=== PATIENT | male | born 1960 | race Caucasian/White ===

== ENCOUNTER 2017-03-10 23:50 | Emergency (ER) | payer MEDICAID ==
[2017-03-11] MEDS ORDERED: Sodium Chloride 0.9% 5 ML Syringe FLUSH PRN (00:10)
[2017-03-11] MEDS ORDERED: Sodium Chloride 0.9% 1,000 ML IV ONE (00:10)
[2017-03-11] MEDS ORDERED: Lidocaine 1% 20 ML MDV ONE (00:16)
--- NOTE | 2017-03-11 00:16 | EDM.PDOC ---
ED HPI GENERAL MEDICAL PROBLEM - General Chief Complaint: Head Injury Stated Complaint: fall head injury Time Seen by Provider: 03/11/17 00:07 Source of Information: Reports: Patient, Family History Limitations: Reports: Intoxication - History of Present Illness INITIAL COMMENTS - FREE TEXT/NARRATIVE: 56 YO WM presents to ER by private car after fall at home. Pt was brought to Er with his family. Pt and family state he had been drinking approx 10 beers tonight and accidentally fell down approximately 10 stairs after walking into his home. Pt complaining of left hand pain, neck pain and bilateral shoulder discomfort. Pt was placed in C-spine precautions once he arrived in ER. Pt denies any headache or loss of consciousness. Pt reports after he fell he was able to walk back up the stairs to get his cellphone to call his family since he was home alone. Onset: Today Onset Date: 03/10/17 Onset Time: 23:00 Duration: Hour(s): (1) Location: Reports: Head, Face, Neck, Upper Extremity, Left Quality: Reports: Ache Severity: Moderate Improves with: Reports: Rest Worsens with: Reports: Movement Context: Reports: Trauma Associated Symptoms: Denies: Confusion, Chest Pain, Headaches, Syncope, Weakness - Related Data Allergies Allergy/AdvReac Type Severity Reaction Status Date / Time No Known Allergies Allergy Verified 03/11/17 01:04 Home Meds: Home Meds . [No Known Home Meds] 03/11/17 [History] ED ROS GENERAL - Review of Systems Review Of Systems: See Below Constitutional: Reports: No Symptoms Respiratory: Reports: No Symptoms Cardiovascular: Reports: No Symptoms Endocrine: Reports: No Symptoms GI/Abdominal: Reports: No Symptoms : Reports: No Symptoms Musculoskeletal: Reports: No Symptoms Skin: Reports: No Symptoms Neurological: Reports: No Symptoms Psychiatric: Reports: No Symptoms Hematologic/Lymphatic: Reports: No Symptoms Immunologic: Reports: No Symptoms ED EXAM, HEAD INJURY - Physical Exam Exam: See Below Exam Limited By: Intoxication General Appearance: Alert, WD/WN, Mild Distress Head: Facial Swelling, Facial Tenderness Nexus Criteria: Posterior, Midline Cervical Tenderness, Evidence of Intoxication. No: Altered Level of Consciousness, Focal Neurological Deficit, Painful Distraction Injuries Eyes: Bilateral Eye: EOMI, PERRL Ears: Normal External Exam, Normal Canal, Hearing Grossly Normal, Normal TMs Nose: Nasal Swelling, Active Bleeding, Dried Blood Throat/Mouth: Normal Inspection, Normal Lips, Normal Teeth, Normal Gums, Normal Oropharynx, Normal Voice, No Airway Compromise Neck: Limited Range of Motion, Tender Midline Respiratory: No Respiratory Distress, Lungs Clear, Normal Breath Sounds, No Accessory Muscle Use, Chest Non-Tender Cardiovascular: Normal Peripheral Pulses, Regular Rate, Rhythm, No Edema, No Gallop, No JVD, No Murmur, No Rub GI/Abdominal Exam: Normal Bowel Sounds, Soft, Non-Tender, No Organomegaly, No Distention, No Abnormal Bruit, No Mass Neurologic: Alert, Oriented x 3 Skin: Normal Color, Warm/Dry - Narendra Coma Score Best Eye Response ([place]): (4) Open Spontaneously Best Verbal Response (Narendra): (5) Oriented Best Motor Response ([place]): (6) Obeys Commands [place] Total: 15 ED LACERATION/WOUND & NICOLA PROC - Laceration/Wound Repair Nose Lac/wound length in cm: 2 Appearance: Superficial Distal NVT: Neuro & Vascular Intact Anesthetic Type: Local Local Anesthesia - Lidocaine (Xylocaine): 1% Plain Local Anesthetic Volume: 3cc Skin Prep: Providone-Iodine (Betadine), Saline Closed with: Sutures Suture Size: other (5.0) # of Sutures: 3 Suture Type: Nylon, Simple Left Finger Lac/wound length in cm: 3 Appearance: Superficial Distal NVT: Neuro & Vascular Intact Anesthetic Type: Digital Local Anesthesia - Lidocaine (Xylocaine): 1% Plain Local Anesthetic Volume: Other (10) Skin Prep: Providone-Iodine (Betadine), Saline Closed with: Sutures Suture Size: other (5) # of Sutures: 5 Suture Type: Nylon, Simple Tetanus Status Addressed: Yes Complications: No - Joint Reduction Site: Finger (L) Sedation: Digital Block Local Anesthesia - Lidocaine (Xylocaine): 1% Plain Local Anesthetic Volume: Other (10cc) Pre-procedure NV status: Normal Post-procedure NV status: Normal Technique: Traction/Counter Traction Number of Attempts: 1 Post-Reduction Imaging: Completely Reduced Course - Orders/Labs/Meds Orders: Active Orders 24 hr Category Date Time Status Peripheral IV Care [RC] . DIRECTED Care 03/11/17 00:10 Ordered Vaccines to be Administered [RC] PER UNIT ROUTINE Care 03/11/17 00:57 Ordered Cervical Spine wo Cont [CT] Stat Exams 03/11/17 00:10 Ordered Chest 1V Frontal [CR] Stat Exams 03/11/17 00:10 Ordered Hand Comp Min 3V Lt [CR] Stat Exams 03/11/17 00:10 Ordered Head wo Cont [CT] Stat Exams 03/11/17 00:10 Ordered Maxillofacial w/o CM [Max Facial Sinus wo Cont] [CT] Exams 03/11/17 00:17 Ordered Stat Pelvis 1V or 2V [CR] Stat Exams 03/11/17 00:10 Ordered Sodium Chloride 0.9% [Syrex Flush] Med 03/11/17 00:10 Ordered 5 ml FLUSH Q8HR PRN Peripheral IV Insertion Adult [OM.PC] Routine Oth 03/11/17 00:10 Ordered Medication Orders Sodium Chloride (Syrex Flush) 5 ml FLUSH Q8HR PRN PRN Reason: Keep Vein Open Labs: Laboratory Tests 03/11/17 03/11/17 03/11/17 Range/Units 00:10 00:10 00:10 WBC 7.3 (5.0-10.0) 10^3/uL RBC 5.06 (4.50-6.00) 10^6/uL Hgb 16.3 (13.0-17.0) g/dL Hct 47.7 (40.0-52.0) % MCV 94.3 H (82.0-92.0) fL MCH 32.2 H (27.0-31.0) pg MCHC 34.2 (32.0-36.0) g/dL RDW 14.0 (11.5-14.5) % Plt Count 223 (150-300) 10^3/uL MPV 7.5 (7.4-10.4) fL Neut % (Auto) 58.5 (50.0-70.0) % Lymph % (Auto) 30.4 (20.0-40.0) % [place] % (Auto) 8.8 H (2.0-8.0) % Eos % (Auto) 1.7 (1.0-3.0) % Baso % (Auto) 0.6 (0.0-1.0) % Neut # (Auto) 4.4 (2.5-7.0) 10^3/uL Lymph # (Auto) 2.2 (1.0-4.0) 10^3/uL [place] # (Auto) 0.6 (0.1-0.8) 10^3/uL Eos # (Auto) 0.1 (0.1-0.3) 10^3/uL Baso # (Auto) 0.0 (0.0-0.1) 10^3/uL PT 10.0 (8.9-11.4) SEC INR 1.0 (0.9-1.1) APTT 26.5 (20.8-31.2) SEC Sodium 135 L (136-145) mmol/L Potassium 3.2 L (3.3-5.3) mmol/L Chloride 100 (98-115) mmol/L Carbon Dioxide 21.6 (21.0-32.0) mmol/L BUN 5 L (6-25) mg/dL Creatinine 0.93 (0.51-1.17) mg/dL Est Cr Clr Drug Dosing TNP Estimated GFR (MDRD) > 60 mL/min Glucose 122 H (70-110) mg/dL Calcium 8.3 L (8.7-10.3) mg/dL Total Bilirubin 0.3 (0.2-1.0) mg/dL AST 21 (15-37) U/L ALT 26 (12-78) U/L Alkaline Phosphatase 76 (46-116) IU/L Total Protein 7.3 (6.4-8.2) g/dL Albumin 3.58 (3.00-4.80) g/dL Specimen Type Urine Color (YELLOW) Urine Appearance (CLEAR) Urine pH (5.0-9.0) Ur Specific [place] (1.005-1.030) Urine Protein (NEGATIVE) mg/dL Urine Glucose (UA) (NEGATIVE) mg/dL Urine Ketones (NEGATIVE) mg/dL Urine Occult Blood (NEGATIVE) Urine Nitrite (NEGATIVE) Urine Bilirubin (NEGATIVE) Urine Urobilinogen (0.2-1.0) E.U./dL Ur Leukocyte Esterase (NEGATIVE) Urine RBC /HPF Urine WBC /HPF Ur Epithelial Cells /LPF Urine Bacteria (NONE TO FEW) /HPF Ethyl Alcohol 260 H* (0-3) mg/dL 03/11/17 Range/Units 00:45 WBC (5.0-10.0) 10^3/uL RBC (4.50-6.00) 10^6/uL Hgb (13.0-17.0) g/dL Hct (40.0-52.0) % MCV (82.0-92.0) fL MCH (27.0-31.0) pg MCHC (32.0-36.0) g/dL RDW (11.5-14.5) % Plt Count (150-300) 10^3/uL MPV (7.4-10.4) fL Neut % (Auto) (50.0-70.0) % Lymph % (Auto) (20.0-40.0) % [place] % (Auto) (2.0-8.0) % Eos % (Auto) (1.0-3.0) % Baso % (Auto) (0.0-1.0) % Neut # (Auto) (2.5-7.0) 10^3/uL Lymph # (Auto) (1.0-4.0) 10^3/uL [place] # (Auto) (0.1-0.8) 10^3/uL Eos # (Auto) (0.1-0.3) 10^3/uL Baso # (Auto) (0.0-0.1) 10^3/uL PT (8.9-11.4) SEC INR (0.9-1.1) APTT (20.8-31.2) SEC Sodium (136-145) mmol/L Potassium (3.3-5.3) mmol/L Chloride (98-115) mmol/L Carbon Dioxide (21.0-32.0) mmol/L BUN (6-25) mg/dL Creatinine (0.51-1.17) mg/dL Est Cr Clr Drug Dosing Estimated GFR (MDRD) mL/min Glucose (70-110) mg/dL Calcium (8.7-10.3) mg/dL Total Bilirubin (0.2-1.0) mg/dL AST (15-37) U/L ALT (12-78) U/L Alkaline Phosphatase (46-116) IU/L Total Protein (6.4-8.2) g/dL Albumin (3.00-4.80) g/dL Specimen Type [place] Urine Color Light yellow (YELLOW) Urine Appearance Clear (CLEAR) Urine pH 6.0 (5.0-9.0) Ur Specific [place] <= 1.005 (1.005-1.030) Urine Protein Negative (NEGATIVE) mg/dL Urine Glucose (UA) Negative (NEGATIVE) mg/dL Urine Ketones Negative (NEGATIVE) mg/dL Urine Occult Blood Negative (NEGATIVE) Urine Nitrite Negative (NEGATIVE) Urine Bilirubin Negative (NEGATIVE) Urine Urobilinogen 0.2 (0.2-1.0) E.U./dL Ur Leukocyte Esterase Negative (NEGATIVE) Urine RBC 0-5 /HPF Urine WBC 0-5 /HPF Ur Epithelial Cells Rare /LPF Urine Bacteria Few (NONE TO FEW) /HPF Ethyl Alcohol (0-3) mg/dL Meds: Medications Generic Name Dose Route Start Last Admin Trade Name Freq PRN Reason Stop Dose Admin Sodium Chloride 5 ml 03/11/17 00:10 Syrex Flush FLUSH Q8HR PRN Keep Vein Open Discontinued Medications Generic Name Dose Route Start Last Admin Trade Name Freq PRN Reason Stop Dose Admin Cefazolin Sodium 1 gm 03/11/17 01:11 03/11/17 01:21 Ancef IVPUSH 03/11/17 01:12 1 gm ONETIME ONE Administration Diphtheria/Tetanus/Acell Pertussis 0.5 ml 03/11/17 00:57 03/11/17 01:10 Adacel IM 03/11/17 00:58 0.5 ml .ONCE ONE Administration Sodium Chloride 1,000 mls @ 999 mls/hr 03/11/17 00:10 Normal Saline IV 03/11/17 01:10 .BOLUS ONE Lidocaine HCl Confirm 03/11/17 00:16 Xylocaine 1% Administered 03/11/17 00:17 Dose 20 ml .ROUTE .[facility] - Radiology Interpretation Free Text/Narrative:: CT head- NAD CT cervical- NAD CT facial bones- nasal bone fracture CXR- NAD Pelvis- NAD Left Hand- NAD Departure - Departure Time of Disposition: 01:33 Disposition: Home, Self-Care 01 Condition: Fair Clinical Impression: Fall (on) (from) other stairs and steps, initial encounter Head injury Qualifiers: Encounter type: initial encounter Qualified Code(s): S09.90XA - Unspecified injury of head, initial encounter Cervical sprain Qualifiers: Encounter type: initial encounter Qualified Code(s): S13.9XXA - Sprain of joints and ligaments of unspecified parts of neck, initial encounter Open finger dislocation Qualifiers: Encounter type: initial encounter Qualified Code(s): S63.259A - Unspecified dislocation of unspecified finger, initial encounter; S61.209A - Unspecified open wound of unspecified finger without damage to nail, initial encounter Laceration of nose Qualifiers: Encounter type: initial encounter Qualified Code(s): S01.21XA - Laceration without foreign body of nose, initial encounter Laceration of hand Qualifiers: Encounter type: initial encounter Foreign body presence: without foreign body Laterality: left Qualified Code(s): S61.412A - Laceration without foreign body of left hand, initial encounter Alcohol intoxication Qualifiers: Complication of substance-induced condition: uncomplicated Qualified Code(s): F10.920 - Alcohol use, unspecified with intoxication, uncomplicated - Discharge Information Instructions: Head Injury, Adult, [id number], Facial or Scalp Contusion, Easy -to-Read, Cervical Sprain, Fall Prevention in the Home, [id number], Alcohol Use Disorder, Facial Laceration, Finger or Thumb Dislocation, [id number] Forms: ED Department Discharge - My Orders Last 24 Hours: My Active Orders 03/11/17 00:10 Peripheral IV Care [RC] . DIRECTED Cervical Spine wo Cont [CT] Stat Chest 1V Frontal [CR] Stat Hand Comp Min 3V Lt [CR] Stat Head wo Cont [CT] Stat Pelvis 1V or 2V [CR] Stat Sodium Chloride 0.9% [Syrex Flush] 5 ml FLUSH Q8HR PRN Peripheral IV Insertion Adult [OM.PC] Routine 03/11/17 00:17 Maxillofacial w/o CM [Max Facial Sinus wo Cont] [CT] Stat 03/11/17 00:57 Vaccines to be Administered [RC] PER UNIT ROUTINE - Assessment/Plan Last 24 Hours: My Active Orders 03/11/17 00:10 Peripheral IV Care [RC] . DIRECTED Cervical Spine wo Cont [CT] Stat Chest 1V Frontal [CR] Stat Hand Comp Min 3V Lt [CR] Stat Head wo Cont [CT] Stat Pelvis 1V or 2V [CR] Stat Sodium Chloride 0.9% [Syrex Flush] 5 ml FLUSH Q8HR PRN Peripheral IV Insertion Adult [OM.PC] Routine 03/11/17 00:17 Maxillofacial w/o CM [Max Facial Sinus wo Cont] [CT] Stat 03/11/17 00:57 Vaccines to be Administered [RC] PER UNIT ROUTINE Assessment:: 1. Fall down 15 stairs 2. nasal bone fracture 3. left middle finger dislocation- post reduction 4. 2cm facial laceration 5. 3cm left middle finger laceration 6. alcohol intoxication 7. cervical strain Plan: 1. discharge home 2. head injury precautions 3. hydrocodone 10/325 #6 Q6 PRN pain 4. motrin 600mg PO Q6 5. follow up with Dr Anabel Gilliland for further evaluation and treatment 6. return to ER for worsening symptoms
[2017-03-11 00:45] LABS: CHLORIDE,CL 100 mmol/L (98-115); SODIUM,NA 135 mmol/L (136-145)
[2017-03-11] MEDS ORDERED: Diphtheria,Pertussis(Acell),Tetanus Vaccine 0.5 ML SDV IM ONE (00:57)
[2017-03-11] MEDS ORDERED: ceFAZolin 1 GM Vial IVPUSH ONE (01:11)
[2017-03-11] MEDS ORDERED: Acetaminophen/HYDROcodone 325-10 MG Tab PO PRN (01:36)
[2017-03-11 02:31] VITALS: BP 135/84
[2017-03-11] MEDS ORDERED: Sodium Chloride 0.9% 1,000 ML ONE (06:04)
== END 2017-03-11 01:45 | disposition home or self-care (01) ==
LOC: KA.ED 23:50
DX: S63.259A Unspecified dislocation of unspecified finger, initial encounter (principal); S01.21XA Laceration without foreign body of nose, initial encounter; S13.9XXA Sprain of joints and ligaments of unspecified parts of neck, initial encounter; F10.920 Alcohol use, unspecified with intoxication, uncomplicated; R40.2412 Glasgow coma scale score 13-15, at arrival to emergency department; Z23 Encounter for immunization; W10.9XXA Fall (on) (from) unspecified stairs and steps, initial encounter; Y92.009 Unspecified place in unspecified non-institutional (private) residence as the place of occurrence of the external cause
CPT/HCPCS: 12002; 12011; 26770; 70450; 70486; 71010; 72125; 72170; 73130; 80053; 81001; 85025; 85610; 85730; 90471; 90715; 96361; 96374; 99284; A9270; G0480; J0690; J7030